=== PATIENT | male | born 1975 | race American Indian/Alaskan Native ===

== ENCOUNTER 2022-03-03 12:54 | Emergency (ER) | payer SELFPAY ==
[2022-03-03 15:43] LABS: Alanine Aminotransferase 9 units/L (7-56); Albumin 5.2 g/dL (3.9-5); Blood Urea Nitrogen 7 mg/dL (9-20); Hemolysis Index 9
[2022-03-03 15:47] LABS: BUN/Creatinine Ratio 10
[2022-03-03 15:58] LABS: Basophils % (Auto) 0.4 % (0.0-1.8); Eosinophils % (Auto) 0.4 % (0.0-4.3); Hematocrit 44.3 % (35.5-45.6); Hemoglobin 15.5 gm/dl (11.8-15.2); Lymphocytes % (Auto) 20.1 % (13.4-35.0); Mean Corpuscular HGB Conc 35 % (32-34); Mean Corpuscular Volume 92 fl (84-94); Monocytes # (Auto) 0.5 K/mm3 (0.0-0.8); Monocytes % (Auto) 11.1 % (0.0-7.3); Platelet Count 244 K/mm3 (140-440); Red Blood Count 4.84 M/mm3 (3.65-5.03); Red Cell Distribution Width 14.2 % (13.2-15.2)
[2022-03-03] MEDS ORDERED: SODIUM CHLORIDE 0.9% 1000 ML 1,000 ML IV ONE (16:12)
[2022-03-03] MEDS ORDERED: METOCLOPRAMIDE 10 MG/2 ML INJ IV STA (16:12)
[2022-03-03] MEDS ORDERED: diphenhydrAMINE 50 MG/ML VIAL IV STA (16:12)
[2022-03-03] MEDS ORDERED: KETOROLAC 30 MG/1 ML INJ IV STA (16:12)
--- NOTE | 2022-03-03 16:13 | Emergency Department Report ---
ED N/V/D HPI - General Chief complaint: Nausea/Vomiting/Diarrhea Stated complaint: DIZZY/ VOMITTING/ EAR PAIN PUI?: Yes Source: patient Mode of arrival: Ambulatory Limitations: No Limitations - History of Present Illness MD complaint: nausea, vomiting, diarrhea -: Gradual, days(s) (3) Location: diffuse Radiation: none Severity: moderate Quality: dull Consistency: constant Improves with: none Worsens with: none Associated Symptoms: fever/chills, headaches, malaise, nausea/vomiting - Related Data Previous Rx's Medication Instructions Recorded Last Taken Type Butalb/Acetaminophen/Caffeine 1 cap PO Q8HR #14 cap 03/03/22 Unknown Rx [Fioricet 50-300-40 mg CAP] Ondansetron [Zofran ODT TAB] 8 mg PO Q8HR #20 tab.rapdis 03/03/22 Unknown Rx Allergies Allergy/AdvReac Type Severity Reaction Status Date / Time No Known Allergies Allergy Unverified 03/03/22 13:58 ED Review of Systems ROS: Stated complaint: DIZZY/ VOMITTING/ EAR PAIN Other details as noted in HPI Comment: All other systems reviewed and negative ED Past Medical Hx - Past Medical History Additional medical history: spinal stenosis - Medications Home Medications: Home Medications Medication Instructions Recorded Confirmed Last Taken Type Butalb/Acetaminophen/Caffeine 1 cap PO Q8HR #14 cap 03/03/22 Unknown Rx [Fioricet 50-300-40 mg CAP] Ondansetron [Zofran ODT TAB] 8 mg PO Q8HR #20 tab.rapdis 03/03/22 Unknown Rx ED Physical Exam - General Limitations: No Limitations General appearance: alert, in no apparent distress - Head Head exam: Present: atraumatic, normocephalic - Eye Eye exam: Present: normal appearance Pupils: Present: other (Negative funduscopic exam) - ENT ENT exam: Present: normal exam, mucous membranes moist - Neck Neck exam: Present: normal inspection, full ROM, thyromegaly - Respiratory Respiratory exam: Present: normal lung sounds bilaterally. Absent: respiratory distress - Cardiovascular Cardiovascular Exam: Present: regular rate, normal rhythm. Absent: systolic murmur, diastolic murmur, rubs, gallop - GI/Abdominal GI/Abdominal exam: Present: soft, tenderness (Vague discomfort to the abdomen), normal bowel sounds. Absent: distended, guarding, rebound, organomegaly, mass, bruit, pulsatile mass, hernia - Rectal Rectal exam: Present: deferred - Extremities Exam Extremities exam: Present: normal inspection - Back Exam Back exam: Present: normal inspection - Neurological Exam Neurological exam: Present: alert, oriented X3, CN II-XII intact, normal gait - Expanded Neurological Exam Expanded Patient oriented to: Present: person, place, time Speech: Present: fluid speech Cranial nerves: EOM's Intact: Normal Cerebellar function: Finger to Nose: Normal, Romberg: Normal Best Eye Response (Lavelle): (4) open spontaneously Best Motor Response (Lavelle): (6) obeys commands Best Verbal Response (Lavelle): (5) oriented Lavelle Total: 15 - Psychiatric Psychiatric exam: Present: normal affect, normal mood - Skin Skin exam: Present: warm, dry, intact, normal color. Absent: rash ED Course Vital Signs 03/03/22 03/03/22 13:40 16:15 Temperature 98.7 F Pulse Rate 88 106 H Respiratory 18 18 Rate Blood Pressure 134/84 136/95 [Left] O2 Sat by Pulse 100 98 Oximetry ED Medical Decision Making - Lab Data Result diagrams: 03/03/22 14:23 03/03/22 14:23 - Medical Decision Making Problem 1 headache This patient presents with a headache most consistent with nonemergent. Differential diagnosis includes migraine versus tension type headache. No headache red flags. Neurologic exam without evidence of meningismus, focal neuro logic findings.Based on the patient's history and physical there is very low clinical suspicion for significant intracranial pathology. The headache was NOT sudden onset, NOT maximal at onset, there are NO neurologic findings, the patient does NOT have a fever, the patient does NOT have any jaw claudication, the patient does NOT endorse a clotting disorder, patient DENIES any trauma or eye pain and the headache is NOT associated with dizziness or ataxia. Presentation not consistent with acute intracranial bleed to include SAH (lack of risk factors, headache history). Presentation not consistent with acute [employer] infection to include meningitis or brain abscess, Temporal arteritis unlikely, as is acute angle closure glaucoma given history and physical findings. Presentation not consistent with other acute, emergent causes of headache at this time. Plan to treat symptomatically with pain medication. No indication for imaging/LP at this time. * Plan: pain medication serial reassessment CT scan negative Problem 2 nausea vomiting Patient presents to the emergency department with nausea, vomiting, diarrhea, differential diagnosis includes possible acute gastroenteritis. Abdominal examination without peritoneal signs. Currently patient is euvolemic without evidence of dehydration. No evidence of surgical abdomen or other acute medical emergency including bowel obstruction, viscus perforation, vascular catastrophe, appendicitis, cholecystitis at this time. Presentation not consistent with other acute emergent causes of vomiting and diarrhea at this time. No indicati on for abdominal imaging Plan supportive care, oral/IV rehydration, antiemetics and reassess Problem 3 possible coronavirus This patient presents to the emergency department with fever and lower re spiratory symptoms concerning for viral syndrome including flu and COVID-19. Patient has suspicion and is for COVID-19 infection. Differential diagnosis includes other viral causes of lower respiratory symptoms, pneumonia, asthma, bronchitis. Patient is well-appearing with acceptable vitals, lacks comorbidities admission and a reassuring physical examination and is safe to be discharged home nasal swab for COVID testing is recommended. Provide strict return precautions and instructions on self isolation/quarantine and anticipatory guidance. Critical care attestation.: If time is entered above; I have spent that time in minutes in the direct care of this critically ill patient, excluding procedure time. ED Disposition Clinical Impression: Cephalgia, COVID-19 virus test result unknown, Nausea, vomiting and diarrhea Disposition: [facility] Is pt being admited?: No Does the pt Need Aspirin: No Condition: Stable Instructions: Rotavirus Infection, Adult, Nausea and Vomiting, Adult, [id number], Chronic Diarrhea, COVID-19 Frequently Asked Questions, COVID-19, Form - Headache Record, General Headache Without Cause, Migraine Headache, [id number] Additional Instructions: Is recommended you follow-up and be screened for coronavirus Prescriptions: Butalb/Acetaminophen/Caffeine [Fioricet 50-300-40 mg CAP] 1 cap PO Q8HR #14 cap Ondansetron [Zofran ODT TAB] 8 mg PO Q8HR #20 tab.rapdis Referrals: [facility] [Provider Group] - 3-5 Days DK OLEARY MD [Staff Physician] - 3-5 Days
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
[2022-03-03 19:00] VITALS: BP 132/86
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
== END 2022-03-03 18:30 ==
LOC: ED 12:54
DX: R51.9 Headache, unspecified (principal); R11.2 Nausea with vomiting, unspecified; R19.7 Diarrhea, unspecified
CPT/HCPCS: 36415; 70450; 71046; 80053; 85025; 96361; 96374; 96375; 99284; J1200; J1885; J2765

== ENCOUNTER 2022-03-03 22:07 | Emergency (ER) | payer SELFPAY ==
[2022-03-03 23:04] VITALS: BP 141/82
[2022-03-04] MEDS ORDERED: IBUPROFEN 600 MG TAB PO ONE (03:10)
[2022-03-04] MEDS ORDERED: ONDANSETRON 4 MG ODT TAB PO ONE (03:10)
[2022-03-04] MEDS ORDERED: HYDROcodone/ACETAMINOPHEN 5-325 MG TAB PO ONE (03:10)
[2022-03-04] MEDS ORDERED: AMOXICILLIN/K CLAV 875/125MG TAB PO ONE (03:10)
--- NOTE | 2022-03-04 04:41 | Emergency Department Report ---
ED General Adult HPI - General Chief complaint: Earache Stated complaint: EARACHE Source: patient Mode of arrival: Ambulatory Limitations: No Limitations - History of Present Illness Initial comments: Patient is a 46-year-old male with no past medical history presents to the ED with complaint of acute onset persistent nasal and sinus congestion, persistent dry cough and bilateral ear pain for the last 1 week. Patient states that the pain has been constant and persistent in the last 3 days. Patient denies dizziness, syncope, chest pain or shortness of breath, nasal and sinus congestion, sore throat, abdominal pain, fever and chills or sore throat. MD Complaint: Nasal congestion; bilateral ear pain; dry cough -: Gradual, week(s) (1) Location: face (bilateral) Radiation: non-radiation Severity scale (0 -10): 7 Quality: aching, sharp Consistency: constant Improves with: none Worsens with: none Associated Symptoms: denies other symptoms, cough. denies: confusion, chest pain, diaphoresis, fever/chills, headaches, loss of appetite, malaise, nausea/vomiting, rash, seizure, shortness of breath, syncope, weakness Treatments Prior to Arrival: none - Related Data Previous Rx's Medication Instructions Recorded Last Taken Type Butalb/Acetaminophen/Caffeine 1 cap PO Q8HR #14 cap 03/03/22 Unknown Rx [Fioricet 50-300-40 mg CAP] Ondansetron [Zofran ODT TAB] 8 mg PO Q8HR #20 tab.rapdis 03/03/22 Unknown Rx Acetaminophen/Codeine [Tylenol 1 tab PO Q6H PRN #10 tab 03/04/22 Unknown Rx /Codeine # 3 tab] Amoxicillin/K Clav Tab [Augmentin 1 tab PO Q12HR #20 tab 03/04/22 Unknown Rx 875 mg] Ibuprofen [Motrin] 800 mg PO Q8HR PRN #30 tablet 03/04/22 Unknown Rx Ofloxacin 0.3% [Floxin 0.3% Otic] 3 drop OT BID #5 ml 03/04/22 Unknown Rx Allergies Allergy/AdvReac Type Severity Reaction Status Date / Time No Known Allergies Allergy Unverified 03/03/22 13:58 ED Review of Systems ROS: Stated complaint: EARACHE Other details as noted in HPI Constitutional: denies: chills, fever Eyes: denies: eye pain, eye discharge, vision change ENT: ear pain (Bilateral), congestion. denies: throat pain Respiratory: cough. denies: shortness of breath, wheezing Cardiovascular: denies: chest pain, palpitations Endocrine: no symptoms reported Gastrointestinal: denies: abdominal pain, nausea, vomiting, diarrhea Genitourinary: denies: urgency, dysuria Musculoskeletal: denies: back pain, joint swelling, arthralgia Skin: denies: rash, lesions Neurological: denies: headache, weakness, paresthesias Psychiatric: denies: anxiety, depression Hematological/Lymphatic: denies: easy bleeding, easy bruising ED Past Medical Hx - Past Medical History Previous Medical History?: Yes Additional medical history: spinal stenosis - Surgical History Past Surgical History?: No - Medications Home Medications: Home Medications Medication Instructions Recorded Confirmed Last Taken Type Butalb/Acetaminophen/Caffeine 1 cap PO Q8HR #14 cap 03/03/22 Unknown Rx [Fioricet 50-300-40 mg CAP] Ondansetron [Zofran ODT TAB] 8 mg PO Q8HR #20 tab.rapdis 03/03/22 Unknown Rx Acetaminophen/Codeine [Tylenol 1 tab PO Q6H PRN #10 tab 03/04/22 Unknown Rx /Codeine # 3 tab] Amoxicillin/K Clav Tab [Augmentin 1 tab PO Q12HR #20 tab 03/04/22 Unknown Rx 875 mg] Ibuprofen [Motrin] 800 mg PO Q8HR PRN #30 tablet 03/04/22 Unknown Rx Ofloxacin 0.3% [Floxin 0.3% Otic] 3 drop OT BID #5 ml 03/04/22 Unknown Rx ED Physical Exam - General Limitations: No Limitations General appearance: alert, in no apparent distress - Head Head exam: Present: atraumatic, normocephalic, normal inspection - Eye Eye exam: Present: normal appearance, PERRL, EOMI Pupils: Present: normal accommodation - ENT ENT exam: Present: normal orophraynx, mucous membranes moist, normal external ear exam, other (Bilateral bulging erythematous tympanic membranes with effusion; grossly congested nasal passages) - Neck Neck exam: Present: normal inspection, full ROM. Absent: tenderness - Respiratory Respiratory exam: Present: normal lung sounds bilaterally. Absent: respiratory distress, wheezes, rales, rhonchi, chest wall tenderness, accessory muscle use, decreased breath sounds, prolonged expiratory - Cardiovascular Cardiovascular Exam: Present: normal rhythm, tachycardia, normal heart sounds. Absent: systolic murmur, diastolic murmur, rubs, gallop - GI/Abdominal GI/Abdominal exam: Present: soft, normal bowel sounds. Absent: tenderness, guarding, rebound, hyperactive bowel sounds, hypoactive bowel sounds, organomegaly - Extremities Exam Extremities exam: Present: normal inspection, full ROM, normal capillary refill. Absent: tenderness - Back Exam Back exam: Present: normal inspection, full ROM. Absent: tenderness, CVA tenderness (R), CVA tenderness (L), muscle spasm, paraspinal tenderness, vertebral tenderness - Neurological Exam Neurological exam: Present: alert, oriented X3, CN II-XII intact, normal gait, reflexes normal - Psychiatric Psychiatric exam: Present: normal affect, normal mood - Skin Skin exam: Present: warm, dry, intact, normal color. Absent: rash ED Course Vital Signs 03/03/22 23:02 Temperature 99.0 F Pulse Rate 108 H Respiratory 18 Rate Blood Pressure 141/82 O2 Sat by Pulse 100 Oximetry ED Medical Decision Making - Medical Decision Making This is a 46-year-old male with no past medical history presents to the ED with complaint of acute onset persistent nasal and sinus congestion, persistent dry cough and bilateral ear pain for the last 1 week. Patient states that the pain has been constant and persistent in the last 3 days. In the ED, patient is alert and oriented x3 and is not in any distress. Patient was treated for pain in the ED and given initial oral antibiotics in the ED. Patient was discharged home on pain medications and antibiotics and advised to follow-up with his primary care physician in 7 to 10 days for reevaluation or return to the ED immediately if symptoms get worse - Differential Diagnosis otitis media; URI; bronchitis Critical care attestation.: If time is entered above; I have spent that time in minutes in the direct care of this critically ill patient, excluding procedure time. ED Disposition Clinical Impression: Acute otitis media with effusion of both ears, Acute upper respiratory in fection Disposition: HOME / SELF CARE / HOMELESS Is pt being admited?: No Does the pt Need Aspirin: No Condition: Stable Instructions: Ear Drops, Adult, [id number], Otitis Media, Adult, [id number], Upper Respiratory Infection, Adult, [id number]-[id number] Additional Instructions: Take medication with food, drink plenty of fluids, follow-up with your primary care physician in 7 to 10 days for reevaluation. Return to the ED immediately if symptoms get worse Prescriptions: Amoxicillin/K Clav Tab [Augmentin 875 mg] 1 tab PO Q12HR #20 tab Ofloxacin 0.3% [Floxin 0.3% Otic] 3 drop OT BID #5 ml Ibuprofen [Motrin] 800 mg PO Q8HR PRN #30 tablet PRN Reason: Pain , Severe (7-10) Acetaminophen/Codeine [Tylenol /Codeine # 3 tab] 1 tab PO Q6H PRN #10 tab PRN Reason: Pain , Severe (7-10) Referrals: [facility] [Provider Group] - 7-10 days Time of Disposition: 04:41 Print Language: [id number]
== END 2022-03-04 05:30 | disposition home or self-care (01) ==
LOC: ED 22:07
DX: H65.03 Acute serous otitis media, bilateral (principal); J06.9 Acute upper respiratory infection, unspecified
CPT/HCPCS: 99282; J3490; Q0162